=== PATIENT | male | born 1990 | race African-American/Black ===

== ENCOUNTER 2016-06-22 16:25 | Emergency (ER) ==
[2016-06-22 16:30] VITALS: BP 117/82; TEMP 99; BMI 27.1
[2016-06-22] MEDS ORDERED: MORPHINE 4 MG/ML SYRINGE IM STA (16:41)
[2016-06-22] MEDS ORDERED: ZOFRAN 4 MG/2 ML IM STA (16:41)
--- NOTE | 2016-06-22 17:09 | CT ---
EXAM: CT brain without contrast HISTORY: Fall with head injury and pain TECHNIQUE: CT of the brain without intravenous contrast FINDINGS: There is no acute hemorrhage midline shift or mass effect. No hydrocephalus or abnormal extra-axial fluid collection. No significant parenchymal attenuation abnormality. The bony cranium appears normal. Ethmoid and maxillary mucoperiosteal thickening. Mastoid air cells and middle ears are clear. Soft tissues without significant abnormality. IMPRESSION: 1. No intracranial abnormality
--- NOTE | 2016-06-22 17:11 | CT ---
Exam: CT facial bones without contrast History: Fall with facial trauma Technique: [address] facial bones with multiplanar reformations FINDINGS: Mucoperiosteal thickening of the maxillary, ethmoid, sphenoid and frontal sinuses. Masto id air cells and middle ears are clear. No sinus fluid. Zygoma and nasal bones are intact. Orbits are intact. Maxilla and mandible are intact. Impression: 1. No facial fracture 2. Pansinusitis changes
--- NOTE | 2016-06-22 17:12 | CT ---
CT cervical spine without contrast HISTORY: Fall with head and neck injury and pain TECHNIQUE: CT of the cervical spine with multiplanar reformations. FINDINGS: Reformatted images demonstrate normal alignment with preservation of vertebral body heigh t. No significant degenerative change. No fracture seen on the axial or reformatted images. No acut e surrounding soft tissue abnormalitites. Lung apices are clear. IMPRESSION: No acute findings in the cervical spine.
[2016-06-22] MEDS ORDERED: TENIVAC IM ONE (17:15)
--- NOTE | 2016-06-22 17:15 | ED.PDOC ---
General ED Provider: Dr. MONICA HAIRSTON-ER Chief Complaint: Wound Check Stated Complaint: a fork hit my back and now its swollen Time Seen by Physician: 16:30 Mode of Arrival: Walk-In Information Source: Patient Exam Limitations: No limitations Primary Care Provider: MARTÍN VILLANUEVA Nursing and Triage Documentation Reviewed and Agree: Yes Skin Complaint Exam - Skin/Soft Tissue Complaint/Exam Onset/Duration: 24hrs Symptoms Are: Still present Timing: Constant Initial Severity: Mild Current Severity: Mild Location: left facial Character: Reports: Redness, Swelling, Raised, Painful Aggravating: Reports: None Alleviating: Reports: None Associated Signs and Symptoms: Reports: Bruising, Tenderness. Denies: Fever, Chills, Itching, Drainage, Red streaks, Joint swelling Related History: Reports: Similar episode Related Surgical History: Reports: None Recent Exposure to Others w/Similar Symptoms: No Skin Findings: Present: Erythema Joint Tenderness Present: No Differential Diagnoses: Abscess, Cellulitis Review of Systems - Review Of Systems Constitutional: Reports: No symptoms Eyes: Reports: No symptoms Ears, Nose, Mouth, Throat: Reports: No symptoms Respiratory: Reports: No symptoms Cardiac: Reports: No symptoms GI: Reports: No symptoms : Reports: No symptoms Musculoskeletal: Reports: No symptoms Skin: Reports: Bruising Neurological: Reports: No symptoms Endocrine: Reports: No symptoms Hematologic/Lymphatic: Reports: No symptoms All Other Systems: Reviewed and Negative Past Medical History - Past Medical History Previously Healthy: Yes Endocrine: Reports: Hyperthyroid Cardiovascular: Reports: None Respiratory: Reports: None Hematological: Reports: None Gastrointestinal: Reports: None Genitourinary: Reports: None Neuro/Psych: Reports: Depression Musculoskeletal: Reports: None Cancer: Reports: None - Surgical History General Surgical History: Reports: None - Family History Family History: Reports: None - Social History Smoking Status: Current some day smoker Hx Substance Use: No Alcohol Screening: None Lives: With family Physical Exam - Physical Exam Appearance: Well-appearing, No pain distress, Well-nourished Pain Distress: Mild Eyes: JANNY, EOMI, Conjunctiva clear ENT: Ears normal, Nose normal, Oropharynx normal Neck: Supple Respiratory: Airway patent Cardiovascular: RRR GI/: Soft Musculoskeletal: Normal strength Skin: Warm, Dry, Normal color (noted erythema just anterior to the left ear wtih puncture wound ) Neurological: Sensation intact, Motor intact, Reflexes intact, Cranial nerves intact, Alert, Oriented Psychiatric: Affect appropriate, Mood appropriate Interpretation - Radiology Interpretation Radiology Interpretation By: Radiologist Radiology Results: Negative Exam Interpreted: CT Scan Re-Evaluation - Re-Evaluation Time of Re-Evaluation: 17:16 Status: Improved Vital Signs Stable: Yes Pain Level: 1 Appearance: NAD Lungs: Clear Skin: Warm and Dry Neuro: Alert and Oriented X3 CV: RRR Critical Care Note - Critical Care Note Total Time (mins): 0 Course - Course Orders, Labs, Meds: Orders Category Date Time Status Morphine Sulfate [Morphine 4 mg/ml Syringe] MEDS 06/22/16 16:41 Discontinued 4 mg IM ONCE STA Ondansetron HCl/Pf [Zofran 4 mg/2 ml] MEDS 06/22/16 16:41 Discontinued 4 mg IM ONCE STA Tetanus and Diphtheria Tox/Pf [Tenivac] MEDS 06/22/16 17:15 Once 0.5 ml IM .ONCE ONE CT CERVICAL SPINE W/O CONTRAST Stat RADS 06/22/16 16:[address] HEAD W/O CONTRAST Stat RADS 06/22/16 16:[address] MAXILLOFACIAL W/O CONTRAST Stat RADS 06/22/16 16:40 Completed Medications Generic Name Dose Route Start Last Admin Trade Name Freq PRN Reason Stop Dose Admin Tetanus/Diphtheria Toxoids Adsorbed 0.5 ml 06/22/16 17:15 Tenivac IM 06/22/16 17:16 .ONCE ONE Discontinued Medications Generic Name Dose Route Start Last Admin Trade Name Freq PRN Reason Stop Dose Admin Morphine Sulfate 4 mg 06/22/16 16:41 06/22/16 16:55 Morphine 4 Mg/Ml Syringe IM 06/22/16 16:42 4 mg ONCE STA Administration Ondansetron HCl 4 mg 06/22/16 16:41 06/22/16 16:56 Zofran 4 Mg/2 Ml IM 06/22/16 16:42 4 mg ONCE STA Administration Vital Signs: Temp Pulse Resp BP Pulse Ox 06/22/16 16:25 99.0 F 82 16 117/82 97 Departure - Departure Time of Disposition: 17:16 Disposition: HOME SELF-CARE Discharge Problem: Cellulitis of face Instructions: Cellulitis (ED) Condition: Good Pt referred to PMD for follow-up: Yes Additional Instructions: clindamycin 150mg tid x 7days--recheck in 48hrs if not better Allergies/Adverse Reactions: Allergies No Known Allergies Allergy (Verified 06/22/16 16:30) Home Medications: Ambulatory Orders 1 [No Reported Medications] 06/22/16 Disposition Discussed With: Patient
== END 2016-06-22 17:40 | disposition home or self-care (01) ==
LOC: ED 16:25
DX: L03.211 Cellulitis of face (principal); F17.210 Nicotine dependence, cigarettes, uncomplicated; W26.8XXA Contact with other sharp object(s), not elsewhere classified, initial encounter
CPT/HCPCS: 90471; 96372; 99283

== ENCOUNTER 2016-06-28 14:56 | Emergency (ER) ==
[2016-06-28 15:01] VITALS: BP 129/79; TEMP 98.9; BMI 27.8
[2016-06-28 15:37] LABS: FLU INTERNAL QC INTERNAL QC VALID; RAPID FLU A NEGATIVE (NEGATIVE); RAPID FLU B NEGATIVE (NEGATIVE)
--- NOTE | 2016-06-28 15:51 | ED.PDOC ---
General ED Provider: Dr. RAYSA GUILLORY Chief Complaint: Sore Throat Stated Complaint: Patient is a 26 year old male who complains of sore throat with muslce aches for one week with associated fever and chills and right sided lymph node swelling Time Seen by Physician: 15:49 Mode of Arrival: Walk-In Information Source: Patient Nursing and Triage Documentation Reviewed and Agree: Yes EENT Complaint Exam - Throat Complaint/Exam Onset/Duration: 7 days Symptoms Are: Still present Timimg: Constant Initial Severity: Moderate Current Severity: Moderate Aggravating: Reports: Eating Alleviating: Reports: Antipyretics Associated Signs and Symptoms: Reports: Fever, Dysphagia, Chills Uvula Midline: No Silva-tonsillar Fluctuence: No Lesions: Absent: Lip, Gums, Tongue, Buccal Mucosa, Pharynx Exanthem: Absent: Lip, Gums, Tongue, Buccal Mucosa, Pharynx Vesicles: Absent: Lip, Gums, Tongue, Buccal Mucosa, Pharynx Stridor Present: No Sinus Tenderness Present: No Tonsillar Hypertrophy Present: Yes Tonsillar Exudate Present: No Silva-tonsillar Swelling Present: Yes Adenopathy Present: Yes (right neck ) Splenomegaly Present: No Differential Diagnoses: Mononucleosis, Pharyngitis Review of Systems - Review Of Systems Constitutional: Reports: Chills, Fever, Loss of appetite Ears, Nose, Mouth, Throat: Reports: Throat pain Respiratory: Reports: No symptoms Cardiac: Reports: No symptoms GI: Reports: No symptoms : Reports: No symptoms Neurological: Reports: Anxiety All Other Systems: Reviewed and Negative Past Medical History - Past Medical History Previously Healthy: Yes Endocrine: Reports: Hyperthyroid Cardiovascular: Reports: Hypertension Respiratory: Reports: None Hematological: Reports: None Gastrointestinal: Reports: None Genitourinary: Reports: None Neuro/Psych: Reports: Depression Musculoskeletal: Reports: None Cancer: Reports: None - Surgical History General Surgical History: Reports: None - Family History Family History: Reports: None - Social History Smoking Status: Current some day smoker Hx Substance Use: No Alcohol Screening: None - Immunizations Tetanus Shot up to Date: Yes Physical Exam - Physical Exam Appearance: Ill-appearing Ill-appearing: Moderate Pain Distress: Moderate Eyes: JANNY, EOMI, Conjunctiva clear ENT: Erythema Neck: Supple Cardiovascular: RRR, Pulses normal, No rub, No murmur Musculoskeletal: Normal strength, ROM intact, No edema, No calf tenderness Skin: Warm, Dry, Normal color Neurological: Motor intact, Alert, Oriented Psychiatric: Anxious Critical Care Note - Critical Care Note Total Time (mins): 0 Course - Course Orders, Labs, Meds: Lab Review 06/28/16 15:05 Influenza A (Rapid) Negative Influenza B (Rapid) Negative Orders Category Date Time Status FLU A & B RAPID TEST [RAPID FLU A/B] Stat LAB 06/28/16 15:05 Completed STREP SCREEN Stat LAB 06/28/16 15:05 Completed Vital Signs: Temp Pulse Resp BP Pulse Ox 06/28/16 14:56 98.9 F 93 H 20 129/79 96 Departure - Departure Time of Disposition: 15:49 Disposition: HOME SELF-CARE Discharge Problem: Strep pharyngitis Instructions: Pharyngitis (ED) Condition: Stable Pt referred to PMD for follow-up: Yes Additional Instructions: Take medications as prescription. Follow up with PCP in 3 days Prescriptions: Amoxicillin [Amoxil] 500 mg PO TID #30 capsule Ibuprofen [Motrin] 600 mg PO Q6H PRN #30 tablet PRN Reason: Analgesia Allergies/Adverse Reactions: Allergies No Known Allergies Allergy (Verified 06/28/16 15:02) Home Medications: Ambulatory Orders Amoxicillin [Amoxil] 500 mg PO TID #30 capsule 06/28/16 Ibuprofen [Motrin] 600 mg PO Q6H PRN #30 tablet 06/28/16 Disposition Discussed With: Patient, Family
== END 2016-06-28 16:02 | disposition home or self-care (01) ==
LOC: ED 14:56
DX: J02.0 Streptococcal pharyngitis (principal); F17.210 Nicotine dependence, cigarettes, uncomplicated
CPT/HCPCS: 87804; 87880; 99283

== ENCOUNTER 2016-12-31 14:22 | Emergency (ER) ==
[2016-12-31 14:25] VITALS: BP 149/97; TEMP 97.5; BMI 30.7
--- NOTE | 2016-12-31 15:06 | ED.PDOC ---
General ED Provider: Dr. CARMELA WELCH Chief Complaint: Tooth Problem Stated Complaint: dental pain Time Seen by Physician: 14:39 Mode of Arrival: Walk-In Information Source: Patient Exam Limitations: No limitations Primary Care Provider: ELTON FERRER Nursing and Triage Documentation Reviewed and Agree: Yes EENT Complaint Exam - Dental/Oral Complaint/Exam Mechanism of Injury: Unknown Onset/Duration: 1 week ago Timing: Constant Initial Severity: Moderate Current Severity: Moderate Character: Reports: Aching, Throbbing Aggravating: Reports: Heat, Cold, Chewing Alleviating: Reports: None Associated Signs and Symptoms: Denies: Swelling, Discharge, Fever, Foul odor, Foul taste in mouth Related History: Reports: Similar episode Cardiac Risk Factors: Reports: None Dental/Oral Surgical History: Reports: None Tooth Findings: Present: Gross caries Cervical Lymphadenopathy Present: No Facial Swelling Present: No Bleeding Present: No Septal Hematoma: No Foreign Body Present: No Dysphagia Present: No Drooling Present: No Asymmetrical Tonsillar Swelling Present: No Uvula Midline: Yes Silva-tonsillar Fluctuence: No Trismus Present: No Palatal Petechiae Present: No Scarlatinaform Rash Present: No Teeth Picture: 1 - decay Differential Diagnoses: Dental Caries Review of Systems - Review Of Systems Constitutional: Reports: No symptoms Eyes: Reports: No symptoms Ears, Nose, Mouth, Throat: Reports: Mouth pain Respiratory: Reports: No symptoms Cardiac: Reports: No symptoms GI: Reports: No symptoms : Reports: No symptoms Musculoskeletal: Reports: No symptoms Skin: Reports: No symptoms Neurological: Reports: No symptoms Endocrine: Reports: No symptoms Hematologic/Lymphatic: Reports: No symptoms All Other Systems: Reviewed and Negative Past Medical History - Past Medical History Previously Healthy: Yes Endocrine: Reports: Hyperthyroid Cardiovascular: Reports: Hypertension Respiratory: Reports: None Hematological: Reports: None Gastrointestinal: Reports: None Genitourinary: Reports: None Neuro/Psych: Reports: Depression Musculoskeletal: Reports: None Cancer: Reports: None - Surgical History General Surgical History: Reports: None - Family History Family History: Reports: None - Social History Smoking Status: Current some day smoker Hx Substance Use: No Alcohol Screening: None Physical Exam - Physical Exam Appearance: Well-appearing, No pain distress, Well-nourished Eyes: JANNY, EOMI, Conjunctiva clear ENT: Ears normal, Nose normal, Oropharynx normal Respiratory: Airway patent, Breath sounds clear, Breath sounds equal, Respirations nonlabored Cardiovascular: RRR, Pulses normal, No rub, No murmur GI/: Soft, Nontender, No masses, Bowel sounds normal, No Organomegaly Musculoskeletal: Normal strength, ROM intact, No edema, No calf tenderness Skin: Warm, Dry, Normal color Neurological: Sensation intact, Motor intact, Reflexes intact, Cranial nerves intact, Alert, Oriented Psychiatric: Affect appropriate, Mood appropriate Critical Care Note - Critical Care Note Total Time (mins): 0 Course - Course Vital Signs: Temp Pulse Resp BP Pulse Ox 12/31/16 14:23 97.5 F L 76 18 149/97 H 98 Departure - Departure Time of Disposition: 15:05 Disposition: HOME SELF-CARE Discharge Problem: Toothache Instructions: Dental Caries (GEN), Toothache (ED) Condition: Good Pt referred to PMD for follow-up: Yes Prescriptions: Amoxicillin 500 mg PO Q8HR #21 tablet Hydrocodone/Acetaminophen [[place] 10-325 Tablet] 1 each PO Q8HR #14 tablet Allergies/Adverse Reactions: Allergies No Known Allergies Allergy (Verified 12/31/16 14:26) Home Medications: Ambulatory Orders Amoxicillin 500 mg PO Q8HR #21 tablet 12/31/16 Hydrocodone/Acetaminophen [[place] 10-325 Tablet] 1 each PO Q8HR #14 tablet
== END 2016-12-31 15:10 | disposition home or self-care (01) ==
LOC: ED 14:22
DX: K08.89 Other specified disorders of teeth and supporting structures (principal); K02.7 Dental root caries; F17.210 Nicotine dependence, cigarettes, uncomplicated
CPT/HCPCS: 99282

== ENCOUNTER 2017-11-04 11:10 | Outpatient (CLI) ==
--- NOTE | 2017-11-04 13:43 | US ---
EXAM: Thyroid ultrasound HISTORY: Hyperthyroidism. COMPARISON: None TECHNIQUE: Sonographic evaluation of the thyroid was performed with limited doppler. FINDINGS: The right thyroid measures 7.8 x 2.7 x 2.7 cm. There is heterogeneous echogenicity with two solid no dules the largest measuring 2.0 x 1.8 x 1.7 cm. These demonstrate mild peripheral color Doppler flow . The isthmus is heterogeneous in appearance measuring 0.7 cm in thickness. The left thyroid measures 7.4 x 2.3 x 2.8 cm. This is heterogeneous in appearance with dominant nodu le in the inferior pole measuring 1.2 x 1.0 x 1.2 cm. IMPRESSION: Diffuse heterogeneous appearance of the thyroid with multiple nodules suggestive of multinodular goit er.
== END 2017-11-04 11:11 | disposition home or self-care (01) ==
LOC: RAD 11:10
PROVIDERS: ATTEND Physician Assistant
DX: Z86.39 Personal history of other endocrine, nutritional and metabolic disease (principal)

== ENCOUNTER 2018-03-04 12:42 | Outpatient (CLI) | END 2018-03-04 12:43 | disposition home or self-care (01) | LOC: LAB 12:42 | PROVIDERS: ATTEND Internal Medicine Endocrinology, Diabetes & Metabolism | DX: E05.90 Thyrotoxicosis, unspecified without thyrotoxic crisis or storm (principal) | CPT/HCPCS: 36415; 84439; 84443; 84481 ==

== ENCOUNTER 2018-04-22 09:59 | Outpatient (CLI) | END 2018-04-22 10:00 | disposition home or self-care (01) | LOC: LAB 09:59 | PROVIDERS: ATTEND Internal Medicine Endocrinology, Diabetes & Metabolism | DX: E05.00 Thyrotoxicosis with diffuse goiter without thyrotoxic crisis or storm (principal) | CPT/HCPCS: 36415; 84439; 84443; 84481 ==

== ENCOUNTER 2018-06-10 10:25 | Outpatient (CLI) | END 2018-06-10 10:26 | disposition home or self-care (01) | LOC: LAB 10:25 | PROVIDERS: ATTEND Internal Medicine Endocrinology, Diabetes & Metabolism | DX: E05.90 Thyrotoxicosis, unspecified without thyrotoxic crisis or storm (principal) | CPT/HCPCS: 36415; 84439; 84443; 84481 ==

== ENCOUNTER 2018-10-08 07:54 | Emergency (ER) ==
[2018-10-08 07:56] VITALS: BP 130/79; TEMP 97.4; BMI 31.5
[2018-10-08] MEDS ORDERED: DECADRON 4 MG/ML SDV IM STA ×2 (08:05→08:18)
[2018-10-08] MEDS ORDERED: BENADRYL IM STA (08:05)
--- NOTE | 2018-10-08 08:05 | ED.PDOC ---
General ED Provider: Dr. CARMELA WELCH Chief Complaint: Rash Stated Complaint: rash on face swelling of bilateral eyes due to contact with poison lori Time Seen by Physician: 08:00 Mode of Arrival: Walk-In Information Source: Patient Exam Limitations: No limitations Primary Care Provider: RODNEY AMBROCIO Nursing and Triage Documentation Reviewed and Agree: Yes Does patient meet sepsis criteria?: No System Inflammatory Response Syndrome: Not Applicable Sepsis Protocol: For patient's 13 years and over: Temp is 96.8 and below OR 101 and greater Pulse >90 BPM Resp >20/minute Acutely Altered Mental Status Are patient's symptoms suggestive of a new infection, such as: -Pneumonia -Skin, Soft Tissue -Endocarditis -UTI -Bone, Joint Infection -Implantable Device -Acute Abdominal Infection -Wound Infection -Meningitis -Blood Stream Catheter Infection -Unknown Skin Complaint Exam - Skin Rash/Itching Complaint/Exam Onset/Duration: face Symptoms Are: Still present Initial Severity: Mild Current Severity: Mild Location: see photos(face only) Potential Exposures: Reports: Plants Prior Treatment: none Aggravating: Reports: None Alleviating: Reports: None Associated Signs and Symptoms: Denies: Difficulty breathing, Fever, Chills Skin Findings: Present: Normal findings Differential Diagnoses: Poison Lori/[place] Review of Systems - Review Of Systems Constitutional: Reports: No symptoms Eyes: Reports: No symptoms Ears, Nose, Mouth, Throat: Reports: No symptoms Respiratory: Reports: Cough Cardiac: Reports: No symptoms GI: Reports: No symptoms : Reports: No symptoms Musculoskeletal: Reports: No symptoms Skin: Reports: No symptoms Neurological: Reports: No symptoms Endocrine: Reports: No symptoms Hematologic/Lymphatic: Reports: No symptoms All Other Systems: Reviewed and Negative Past Medical History - Past Medical History Previously Healthy: Yes 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) Cardiovascular: Reports: Hypertension Respiratory: Reports: None Hematological: Reports: None Gastrointestinal: Reports: None Genitourinary: Reports: None Neuro/Psych: Reports: Depression Musculoskeletal: Reports: None Cancer: Reports: None - Surgical History General Surgical History: Reports: None - Family History Family History: Reports: None - Social History Smoking Status: Current some day smoker Hx Substance Use: No Alcohol Screening: None Physical Exam - Physical Exam Appearance: Well-appearing, No pain distress, Well-nourished Eyes: JANNY, EOMI, Conjunctiva clear ENT: Ears normal, Nose normal, Oropharynx normal Respiratory: Airway patent, Breath sounds clear, Breath sounds equal, Respirations nonlabored Cardiovascular: RRR, Pulses normal, No rub, No murmur GI/: Soft, Nontender, No masses, Bowel sounds normal, No Organomegaly Musculoskeletal: Normal strength, ROM intact, No edema, No calf tenderness Skin: Warm, Dry, Normal color Neurological: Sensation intact, Motor intact, Reflexes intact, Cranial nerves intact, Alert, Oriented Psychiatric: Affect appropriate, Mood appropriate Critical Care Note - Critical Care Note Total Time (mins): 0 Course - Course Vital Signs: Temp Pulse Resp BP Pulse Ox 10/08/18 07:54 97.4 F L 65 18 130/79 97 Departure - Departure Time of Disposition: 08:04 Disposition: HOME SELF-CARE Discharge Problem: Pruritic rash, Poison lori dermatitis Instructions: Poison Lori (ED) Condition: Good Pt referred to PMD for follow-up: Yes IPMP verified?: No Additional Instructions: Please call your Family Physician as soon as possible to schedule a follow-up appointment. Allergies/Adverse Reactions: Allergies No Known Allergies Allergy (Verified 10/08/18 07:56) Home Medications: Ambulatory Orders Prednisone 20 mg PO DAILYWM #5 tablet 10/08/18
== END 2018-10-08 08:42 | disposition home or self-care (01) ==
LOC: ED 07:54
DX: L23.7 Allergic contact dermatitis due to plants, except food (principal); F17.210 Nicotine dependence, cigarettes, uncomplicated
CPT/HCPCS: 96372; 99282